=== PATIENT | male | born 1970 | race African-American/Black ===

== ENCOUNTER 2020-10-24 17:37 | Emergency (ER) | payer SELFPAY ==
[~2020-10-24] VITALS: Ht 175.3 cm; Wt 80.0 kg
[2020-10-24 18:01] VITALS: BP 189/90
== END 2020-10-24 18:45 | disposition left against medical advice (07) ==
LOC: ER 17:37
DX: R06.09 Other forms of dyspnea (principal); Z53.21 Procedure and treatment not carried out due to patient leaving prior to being seen by health care provider